=== PATIENT | female | born 1985 | race African-American/Black ===

== ENCOUNTER 2016-09-24 23:00 | Emergency (ER) | payer MEDICAID ==
[~2016-09-24] VITALS: Ht 170.2 cm; Wt 114.0 kg
[~2016-09-24 23:00] MED LIST: ASPI81TA82 PO; CEPH500 PO; PREN0.01 PO
[2016-09-24 23:02] VITALS: BP 133/77; PULSE 90; RESP 16; TEMP 98.5; O2SAT 99
--- NOTE | 2016-09-24 23:36 | PD ---
HPI Chief Complaint: Cold / Flu Symptoms Time Seen by Provider: 23:28 Travel History International Travel<30 days: No Contact w/Intl Traveler<30days: No Traveled to known affect area: No History of Present Illness HPI 31-year-old female presents for evaluation. For one week she has had cough, congestion, sore throat. Her family members have been having similar symptoms. She's been using Tea but symptoms persist which prompted evaluation. No fevers or chills, rash, recent travel, nausea or vomiting, abdominal pain. No other complaints. PFSH Past Medical History Cardiovascular Problems: Yes (ENLARGE HEART) ?: Not LMP: TUBAL Past Surgical History Section: Yes (x 4) Social History Alcohol Use: No Tobacco Use: No Substance Use: No Allergies-Medications (Allergen,Severity, Reaction): Coded Allergies: No Known Allergies (Unverified , 09/24/16) Reported Meds & Prescriptions Reported Meds & Active Scripts Active No Active Prescriptions or Reported Medications Review of Systems Except as stated in HPI: all other systems reviewed are Neg Physical Exam Narrative GENERAL: Well-developed well-nourished female in no acute distress SKIN: Warm and dry. HEAD: Atraumatic. Normocephalic. EYES: Pupils equal and round. No scleral icterus. No injection or drainage. ENT: No nasal bleeding or discharge. Mucous membranes pink and moist. NECK: Trachea midline. No JVD. CARDIOVASCULAR: Regular rate and rhythm. No murmur appreciated. RESPIRATORY: No accessory muscle use. Clear to auscultation. Breath sounds equal bilaterally. GASTROINTESTINAL: Abdomen soft, non-tender, nondistended. Hepatic and splenic margins not palpable. Data Data Last Documented VS Vital Signs Date Time Temp Pulse Resp B/P Pulse Ox O2 Delivery O2 Flow Rate FiO2 09/24/16 23:02 98.5 90 16 133/77 99 Orders Group A Rapid Strep Screen (09/24/16 23:34) Influenzae A/B Antigen (09/24/16 23:34) Strep Culture (Group A) (09/24/16 23:45) MDM Medical Decision Making Medical Screen Exam Complete: Yes Emergency Medical Condition: Yes Medical Record Reviewed: Yes Interpretation(s) Influenza antigen negative Rapid strep screen negative Differential Diagnosis Influenza, bronchitis, pneumonia, reactive airway disease, pharyngitis, tonsillitis, peritonsillar abscess, infectious mononucleosis Narrative Course 31-year-old female who presents with 1 week of cough, congestion, sore throat. Physical examination is unremarkable. A rapid strep screen and influenza antigen tests have been performed. Rapid strep screen and influenza antigen test are negative. The patient appears to have a viral upper respiratory infection. She is being discharged with a cough suppressant medication. Diagnosis Primary Impression: Upper respiratory infection Qualified Code: J06.9 - Upper respiratory tract infection, unspecified type Additional Instructions: Medication as prescribed. Stay well hydrated well-nourished, get plenty of rest. Follow-up with primary care physician as needed. Return for any emergent medical conditions. Med/Other Pt SpecificInfo: Prescription(s) given Scripts Benzonatate (Tessalon Perles)100 Mg [id number] Mg PO TID PRN (COUGH) #30 CAP Ref 0 Prov:Radha Hough MD 09/25/16 Disposition: 01 DISCHARGE HOME Condition: Stable Jose Adair Sep 24, 2016 23:36
[2016-09-25] MEDS ORDERED: BENZ100 PO (00:19)
== END 2016-09-25 00:41 | disposition home or self-care (01) ==
LOC: NETRI 23:00
DX: J06.9 Acute upper respiratory infection, unspecified (principal)
CPT/HCPCS: 87081; 87804; 87880; 99283